=== PATIENT | female | born 1985 | race American Indian/Alaskan Native ===

== ENCOUNTER 2019-03-09 18:12 | Inpatient (IN) | payer OTHER ==
[~2019-03-09] VITALS: Ht 165.1 cm; Wt 121.1 kg
[~2019-03-09 18:12] MED LIST changes: -OBSTETRIX DHA1 EACH PO
[2019-03-09] MEDS ORDERED: OBSTETRIX DHA1 EACH PO (21:35)
== END 2019-03-11 14:06 | disposition home or self-care (01) | DRG 833 ==
LOC: LDR 18:12
PROVIDERS: ADMIT Obstetrics & Gynecology Maternal & Fetal Medicine
PROC: 4A1HXCZ Monitoring of Products of Conception, Cardiac Rate, External Approach (ICD-10-PCS; principal; 2019-03-09)
DX: O26.873 Cervical shortening, third trimester (principal); Z34.83 Encounter for supervision of other normal pregnancy, third trimester

== ENCOUNTER → 2019-03-09 | Outpatient (CLI) | payer OTHER ==
[~2019-03-09] MED LIST: AUGMENTIN1 TAB.SR . PO; CLARINEX5 MG/TAB PO; OBSTETRIX DHA1 EACH PO
== END | disposition home or self-care (01) ==
LOC: NST 17:11
DX: Z34.83 Encounter for supervision of other normal pregnancy, third trimester (principal)

== ENCOUNTER 2019-03-24 11:08 | Inpatient (IN) | payer OTHER ==
[~2019-03-24] VITALS: Ht 165.1 cm; Wt 2.3 kg
[~2019-03-24 11:08] MED LIST changes: +OBSTETRIX DHA1 EACH PO
[2019-03-24] MEDS ORDERED: NIFE60TA3 PO (13:37)
== END 2019-03-28 15:05 | disposition home or self-care (01) | DRG 786 ==
LOC: NST 11:08 → OB/GYN 12:41 → LDR 12:41 → O/R 03-25 19:55 → OB/GYN 03-25 20:07
PROVIDERS: ADMIT Obstetrics & Gynecology
PROC: 4A0HXFZ Measurement of Products of Conception, Cardiac Rhythm, External Approach (ICD-10-PCS; 2019-03-25)
PROC: 10D00Z1 Extraction of Products of Conception, Low, Open Approach (ICD-10-PCS; principal; 2019-03-25 16:00)
DX: O82 Encounter for cesarean delivery without indication (principal); O60.14X0 Preterm labor third trimester with preterm delivery third trimester, not applicable or unspecified; Z37.0 Single live birth; Z3A.33 33 weeks gestation of pregnancy

== ENCOUNTER 2020-04-02 05:25 | Emergency (ER) | payer OTHER ==
[~2020-04-02] VITALS: Ht 165.1 cm; Wt 115.2 kg
[~2020-04-02 05:25] MED LIST changes: +NIFE60TA3 PO
== END 2020-04-02 10:19 | disposition home or self-care (01) ==
LOC: ER 05:25
DX: O46.8X2 Other antepartum hemorrhage, second trimester (principal); Z3A.17 17 weeks gestation of pregnancy

== ENCOUNTER 2020-06-20 14:34 | Emergency (ER) | payer OTHER ==
[~2020-06-20] VITALS: Ht 152.4 cm; Wt 116.1 kg
[2020-06-20] MEDS ORDERED: PERCOGESIC EXT1 EACH PO (16:21)
== END 2020-06-20 18:40 | disposition home or self-care (01) ==
LOC: ER 14:34
DX: O26.892 Other specified pregnancy related conditions, second trimester (principal); S93.492A Sprain of other ligament of left ankle, initial encounter; S80.01XA Contusion of right knee, initial encounter; X50.0XXA Overexertion from strenuous movement or load, initial encounter; Y93.89 Activity, other specified; Y92.098 Other place in other non-institutional residence as the place of occurrence of the external cause; Y99.8 Other external cause status; Z34.82 Encounter for supervision of other normal pregnancy, second trimester

== ENCOUNTER 2020-07-18 11:53 | Outpatient (CLI) | payer OTHER ==
[~2020-07-18 11:53] MED LIST changes: +PERCOGESIC EXT1 EACH PO
== END 2020-07-18 12:54 | disposition home or self-care (01) ==
LOC: NST 11:53
PROVIDERS: ATTEND Obstetrics & Gynecology Maternal & Fetal Medicine
DX: Z34.83 Encounter for supervision of other normal pregnancy, third trimester (principal)

== ENCOUNTER 2020-08-21 07:15 | Inpatient (IN) | payer OTHER ==
[~2020-08-21] VITALS: Ht 165.1 cm; Wt 119.3 kg
[2020-08-28] MEDS ORDERED: IRON PO (11:45)
[2020-08-28] MEDS ORDERED: INTEGRA F CAPS1 EAC1 (16:04)
[2020-08-31] MEDS ORDERED: OXYC1TAB9 PO (09:43)
== END 2020-08-31 15:28 | disposition home or self-care (01) | DRG 788 ==
LOC: SURH 08-28 07:15 → O/R 08-28 10:15 → SURH 08-28 13:30 → SURG-SUITE 08-28 19:47
PROVIDERS: ADMIT Obstetrics & Gynecology; ATTEND Obstetrics & Gynecology
PROC: 4A1HXFZ Monitoring of Products of Conception, Cardiac Rhythm, External Approach (ICD-10-PCS; 2020-08-28)
PROC: 10D00Z1 Extraction of Products of Conception, Low, Open Approach (ICD-10-PCS; principal; 2020-08-28 13:30)
DX: O34.211 Maternal care for low transverse scar from previous cesarean delivery (principal); Z3A.37 37 weeks gestation of pregnancy; Z37.0 Single live birth

== ENCOUNTER 2024-07-03 09:37 | Emergency (ER) | payer OTHER ==
[~2024-07-03] VITALS: Ht 165.1 cm; Wt 112.5 kg
[~2024-07-03 09:37] MED LIST changes: +INTEGRA F CAPS1 EAC1; +IRON PO; +OXYC1TAB9 PO
[2024-07-03] MEDS ORDERED: FAMOTIDINE/PF 20 MG/2 ML VIAL IV ONE (14:00)
[2024-07-03] MEDS ORDERED: MEPERIDINE HCL/PF 25 MG/ML VIAL IM ONE (14:00)
[2024-07-03 14:43] LABS: HEMATOCRIT 37.8 % (36.0-45.00); MEAN CELL VOLUME 92.2 fL (80.00-100.00); MEAN CORPUSCULAR HEMOGLOBIN 31.6 pg (27.00-32.0); MEAN CORPUSCULAR HGB CONC 34.3 g/dl (32.0-36.0); PLATELET COUNT 200 K/uL (150-450); RED CELL DISTRIBUTION WIDTH 15.1 % (11.5-14.5)
[2024-07-03 15:03] LABS: AMYLASE 53 U/L (25-115); LIPASE 27 U/L (13-75)
[2024-07-03 15:09] LABS: ALBUMIN 3.4 gm/dL (3.4-5.0); BILIRUBIN TOTAL 0.34 mg/dL (0.3-1.2); CALCIUM 9.3 mg/dL (8.5-10.1); CREATININE SERUM 0.56 mg/dL (0.55-1.02); GFR 122.49; GLOBULINA 4.2 G/DL (2.4-3.5); POTASSIUM 3.66 mEq/L (3.5-5.1); TOTAL PROTEIN 7.6 gm/dL (6.4-8.2)
[2024-07-03 15:57] LABS: PH,URINE 6.5 (5.0-8.0); URINE APPEARANCE Clear; URINE BILIRRUBIN Negative (NEGATIVE); URINE BLOOD Negative; URINE COLOR Yellow; URINE GLUCOSE Negative (NEGATIVE); URINE KETONE Negative (NEGATIVE); URINE LEUKOCYTE Negative; URINE NITRATE Negative; URINE PROTEIN Negative (NEGATIVE); URINE UROBILINOGEN 0.2 E.U./dl
[2024-07-03 16:00] LABS: URINE BACTERIA 485.9 uL (0.0-1933); URINE RBC 2.2 uL (0.0-20.8)
[2024-07-03 16:09] LABS: URINE WBC 0.7 uL (0.0-23.2)
[2024-07-03] MEDS ORDERED: KETOROLAC TROMETHAMINE 15 MG VIAL IV STA (18:06)
[2024-07-03] MEDS ORDERED: TRAMADOL HCL 50 MG TABLET PO STA (18:06)
== END 2024-07-03 19:52 | disposition home or self-care (01) ==
LOC: ER 09:39
PROVIDERS: General Practice
DX: R10.9 Unspecified abdominal pain (principal); N80.8 Other endometriosis; E16.1 Other hypoglycemia; I10 Essential (primary) hypertension; N83.292 Other ovarian cyst, left side

== ENCOUNTER 2025-04-10 12:30 | Inpatient (IN) | payer OTHER ==
[~2025-04-10] VITALS: Ht 152.4 cm; Wt 115.7 kg
[2025-04-10] MEDS ORDERED: CENTRUM ADULT80 MCG PO (13:07)
[2025-04-10] MEDS ORDERED: LARIN 1.5 MG-31 EACH (13:07)
[2025-04-10 13:08] VITALS: BP 120/78
[2025-04-10 15:34] LABS: RH POSITIVE
[2025-04-18] MEDS ORDERED: METRONIDAZOLE/SODIUM CHLORIDE 500 MG/100 ML PIGGYBACK IV ONE (08:10)
[2025-04-18] MEDS ORDERED: CEFTRIAXONE SODIUM 2,000 MG VIAL ONE (08:10)
[2025-04-18] MEDS ORDERED: BUPIVACAINE HCL/MPF 0.5% 30ML VIAL ONE (10:58)
[2025-04-18] MEDS ORDERED: POVIDONE-IODINE 118 ML BOTT TOP ONE (10:59)
[2025-04-18] MEDS ORDERED: LIDOCAINE HCL 1%/EPINEPHRINE 20ML VIAL IJ ONE (10:59)
[2025-04-18] MEDS ORDERED: THROMBIN,HU/FIBRINOGEN/CALCIUM 10 ML SYRINGE TOP ONE (10:59)
[2025-04-18] MEDS ORDERED: VISTASEAL DUAL APPICATOR 1 EACH APPL TOP ONE (10:59)
[2025-04-18] MEDS ORDERED: CEFAZOLIN SODIUM 1,000 MG VIAL ONE (16:51)
[2025-04-18] MEDS ORDERED: SUGAMMADEX SODIUM 200 MG/2 ML VIAL IV ONE (16:52)
[2025-04-18] MEDS ORDERED: MORPHINE SULFATE 4 MG/ML VIAL IV ONE ×3 (18:35→20:50)
[2025-04-18] MEDS ORDERED: MORPHINE SULFATE 4 MG/ML CARTRIDGE IV PRN (20:45)
[2025-04-18] MEDS ORDERED: OxyCODONE HCL 5 MG TABLET (ROXICODONE) PO PRN (20:45)
[2025-04-18] MEDS ORDERED: RINGERS SOLUTION,LACTATED 1,000 ML IV SCH (20:45)
[2025-04-18] MEDS ORDERED: ONDANSETRON HCL 2 MG/ML VIAL IV PRN (20:45)
[2025-04-18] MEDS ORDERED: CELECOXIB 200 MG CAPSULE PO SCH (21:00)
[2025-04-18] MEDS ORDERED: SIMETHICONE 125 MG CAPSULE PO SCH (21:00)
[2025-04-18] MEDS ORDERED: FAMOTIDINE/PF 20 MG/2 ML VIAL IV PUSH SCH (21:00)
[2025-04-18 21:42] LABS: BASO % 0.1 % (0.1-1.2); EOS # 0.00 (0.04-0.54); EOS % 0.0 % (0.7-7.0); LYMPH # 0.63 (1.18-3.74); LYMPH % 6.8 % (19.3-53.1); MEAN PLATELET VOLUME 9.60 fl (9.4-12.4); MONO # 0.72 (0.24-0.82); MONO % 7.8 % (4.7-12.5); NEUT # 7.83 (1.56-6.13); NEUT % 85.0 % (34.0-71.1); RED CELL DISTRIBUTION WIDTH 14.2 % (11.6-14.4)
[2025-04-18 21:43] VITALS: BP 120/78
[2025-04-19] VITALS: BP 103/68
[2025-04-19] MEDS ORDERED: GABAPENTIN 300 MG CAPSULE PO SCH (01:00)
[2025-04-19] MEDS ORDERED: METOCLOPRAMIDE HCL 5 MG/ML VIAL IV SCH (01:00)
[2025-04-19] MEDS ORDERED: ACETAMINOPHEN 500 MG GEL..CAP PO SCH (02:00)
[2025-04-19 06:52] LABS: BASO % 0.1 % (0.1-1.2); EOS # 0.00 (0.04-0.54); EOS % 0.0 % (0.7-7.0); LYMPH # 0.79 (1.18-3.74); LYMPH % 10.7 % (19.3-53.1); MEAN PLATELET VOLUME 10.10 fl (9.4-12.4); MONO # 0.62 (0.24-0.82); MONO % 8.4 % (4.7-12.5); NEUT # 5.94 (1.56-6.13); NEUT % 80.5 % (34.0-71.1); RED CELL DISTRIBUTION WIDTH 13.9 % (11.6-14.4)
[2025-04-19 07:09] LABS: BUN CREA RATIO 9.0 (7.0-25.0); CREATININE SERUM 0.55 mg/dL (0.55-1.02); GFR 124.37; GLUCOSE FASTING 135.0 mg/dL (65-100); OSMOLALITY SERUM 277.0 MOSM/KG (275-295)
[2025-04-19] MEDS ORDERED: KETOROLAC TROMETHAMINE 30 MG VIAL IV SCH (08:00)
[2025-04-19] MEDS ORDERED: HYOSCYAMINE SULFATE 0.125 MG TAB.SUBL SL SCH (09:00)
[2025-04-19] MEDS ORDERED: LACTOBACILLUS ACIDOPHILUS 1 CAP CAP PO SCH (09:00)
[2025-04-19 09:44] VITALS: BP 122/74; O2SAT 98
[2025-04-19 16:11] VITALS: BP 106/71; O2SAT 99
[2025-04-19] MEDS ORDERED: ENOXAPARIN SODIUM 40 MG/0.4 ML SYRINGE SUBCUTANEO SCH (17:00)
[2025-04-20 00:36] VITALS: BP 109/72; O2SAT 96
[2025-04-20 06:19] LABS: BASO % 0.2 % (0.1-1.2); EOS # 0.02 (0.04-0.54); EOS % 0.3 % (0.7-7.0); LYMPH # 1.68 (1.18-3.74); LYMPH % 26.5 % (19.3-53.1); MEAN PLATELET VOLUME 9.80 fl (9.4-12.4); MONO # 0.89 (0.24-0.82); NEUT # 3.73 (1.56-6.13); NEUT % 58.9 % (34.0-71.1); RED CELL DISTRIBUTION WIDTH 14.4 % (11.6-14.4)
[2025-04-20 06:33] LABS: MONO % 14.1 % (4.7-12.5)
[2025-04-20 06:58] LABS: BUN CREA RATIO 10.0 (7.0-25.0); CREATININE SERUM 0.49 mg/dL (0.55-1.02); GFR 142.1; GLUCOSE FASTING 103.0 mg/dL (65-100); OSMOLALITY SERUM 284.0 MOSM/KG (275-295)
[2025-04-20] MEDS ORDERED: ENOXAPARIN SODIUM 40 MG/0.4 ML SYRINGE SUBCUTANEO SCH (09:00)
[2025-04-20 09:07] VITALS: BP 114/67; O2SAT 97
[2025-04-20] MEDS ORDERED: POTASSIUM PHOS,M-BASIC-D-BASIC 15 MM in 0.9 % SODIUM CHLORIDE 250 ML IV NR (10:00)
[2025-04-20] MEDS ORDERED: POLYETHYLENE GLYCOL 3350 17 GM BLIST.PACK PO NR (10:30)
[2025-04-20 16:30] VITALS: BP 120/79; O2SAT 100
[2025-04-21 00:14] VITALS: BP 117/75; O2SAT 100
[2025-04-21 04:00] VITALS: BP 118/74; O2SAT 98
[2025-04-21 08:10] VITALS: BP 122/64
[2025-04-21] MEDS ORDERED: POLYETHYLENE GLYCOL 3350 17 GM BLIST.PACK PO SCH (09:00)
[2025-04-21] MEDS ORDERED: TRAMADOL HCL 50 MG TABLET PO PRN (14:15)
[2025-04-21 18:00] VITALS: BP 104/71
[2025-04-21] MEDS ORDERED: PROMETHAZINE HCL 25 MG/ML AMPUL ONE (21:51)
[2025-04-21] MEDS ORDERED: MORPHINE SULFATE 4 MG/ML VIAL IV PRN (22:00)
[2025-04-21] MEDS ORDERED: PROMETHAZINE HCL 50 MG/ML AMPUL IM PRN (22:00)
[2025-04-22 01:14] VITALS: BP 113/76; O2SAT 99
[2025-04-22 07:30] VITALS: BP 120/81; O2SAT 97
[2025-04-22] MEDS ORDERED: HYOSCYAMINE0.125 M1 SL (09:46)
[2025-04-22] MEDS ORDERED: PERCOCET 5-3251 EACH PO (09:50)
[2025-04-22] MEDS ORDERED: PEPCID AC20 MG PO (09:53)
[2025-04-22] MEDS ORDERED: MORPHINE SULFATE 4 MG/ML CARTRIDGE IV PRN (10:45)
== END 2025-04-22 12:08 | disposition home or self-care (01) | DRG 742 ==
LOC: SURH 04-18 07:00 → O/R 04-18 08:03 → OB/GYN 04-18 08:03 → SURH 04-18 12:30 → OB/GYN 04-22 12:08
PROVIDERS: Internal Medicine Geriatric Medicine; Surgery; Urology; ADMIT Obstetrics & Gynecology Gynecology; ATTEND Obstetrics & Gynecology Gynecology
PROC: 0DNW4ZZ Release Peritoneum, Percutaneous Endoscopic Approach (ICD-10-PCS; 2025-04-18)
PROC: 0TNB4ZZ Release Bladder, Percutaneous Endoscopic Approach (ICD-10-PCS; 2025-04-18)
PROC: 0TN74ZZ Release Left Ureter, Percutaneous Endoscopic Approach (ICD-10-PCS; 2025-04-18)
PROC: 0UN14ZZ Release Left Ovary, Percutaneous Endoscopic Approach (ICD-10-PCS; 2025-04-18)
PROC: 0DBW4ZZ Excision of Peritoneum, Percutaneous Endoscopic Approach (ICD-10-PCS; 2025-04-18)
PROC: 0DT84ZZ Resection of Small Intestine, Percutaneous Endoscopic Approach (ICD-10-PCS; 2025-04-18)
PROC: 0DTN4ZZ Resection of Sigmoid Colon, Percutaneous Endoscopic Approach (ICD-10-PCS; 2025-04-18)
PROC: 0DBP4ZZ Excision of Rectum, Percutaneous Endoscopic Approach (ICD-10-PCS; 2025-04-18)
PROC: 0DTJ4ZZ Resection of Appendix, Percutaneous Endoscopic Approach (ICD-10-PCS; 2025-04-18)
PROC: 0DJD8ZZ Inspection of Lower Intestinal Tract, Via Natural or Artificial Opening Endoscopic (ICD-10-PCS; 2025-04-18)
PROC: 0T784DZ Dilation of Bilateral Ureters with Intraluminal Device, Percutaneous Endoscopic Approach (ICD-10-PCS; 2025-04-18)
PROC: 0UT94ZZ Resection of Uterus, Percutaneous Endoscopic Approach (ICD-10-PCS; principal; 2025-04-18 07:00)
PROC: 0UT74ZZ Resection of Bilateral Fallopian Tubes, Percutaneous Endoscopic Approach (ICD-10-PCS; 2025-04-18 07:00)
PROC: 0UT24ZZ Resection of Bilateral Ovaries, Percutaneous Endoscopic Approach (ICD-10-PCS; 2025-04-18 07:00)
DX: N80.03 Adenomyosis of the uterus (principal); Z68.41 Body mass index [BMI] 40.0-44.9, adult; N80.519 Endometriosis of the rectum, unspecified depth; N80.529 Endometriosis of the sigmoid colon, unspecified depth; N80.103 Endometriosis of bilateral ovaries, unspecified depth; N80.8 Other endometriosis; N94.5 Secondary dysmenorrhea; D27.1 Benign neoplasm of left ovary; D12.4 Benign neoplasm of descending colon; F41.0 Panic disorder [episodic paroxysmal anxiety]; E66.9 Obesity, unspecified; N80.559 Endometriosis of other parts of the colon, unspecified depth